=== PATIENT | female | born 1990 | race Two or more races ===

== ENCOUNTER 2018-12-06 10:58 | Emergency (ER) | payer OTHER ==
[~2018-12-06] VITALS: Ht 162.6 cm; Wt 60.8 kg
[~2018-12-06 10:58] MED LIST: CRYSELLE1 TAB
[2018-12-06] MEDS ORDERED: KETO10TA2 PO (14:11)
[2018-12-06] MEDS ORDERED: NORFLEX100MG PO (14:11)
== END 2018-12-06 14:15 | disposition home or self-care (01) ==
LOC: ER 10:58
DX: S13.4XXA Sprain of ligaments of cervical spine, initial encounter (principal); S20.212A Contusion of left front wall of thorax, initial encounter; S20.211A Contusion of right front wall of thorax, initial encounter; S40.011A Contusion of right shoulder, initial encounter; S90.31XA Contusion of right foot, initial encounter; V49.9XXA Car occupant (driver) (passenger) injured in unspecified traffic accident, initial encounter; Y93.89 Activity, other specified; Y92.488 Other paved roadways as the place of occurrence of the external cause; Y99.8 Other external cause status